=== PATIENT | female | born 1945 | race Caucasian/White ===

== ENCOUNTER → 2017-09-20 | Outpatient (CLI) | payer MEDICARE ==
[~2017-09-20] MED LIST: ACYC800T99 PO; ADV250/50 INH; ALB17R INH; DOC100 PO; OMEP10CA40 PO; ONDA4TAB PO; PAN40 PO; PER PO; PROM25SU61 RC; RANI150T PO; TRIF7.5D5 OP
== END ==
LOC: RESP 03:39
PROVIDERS: ATTEND Nurse Practitioner Psychiatric/Mental Health
DX: J44.9 Chronic obstructive pulmonary disease, unspecified (principal)
CPT/HCPCS: 94060; 94726; 94729

== ENCOUNTER → 2018-08-20 | Outpatient (REF) | payer MEDICARE ==
[2018-08-20 10:35] LABS: PLATELET COUNT, AUTOMATED 370 K/uL (150-450)
== END ==
LOC: ZZSTITCHES 10:22
PROVIDERS: ATTEND Physician Assistant
DX: R06.02 Shortness of breath (principal); R53.81 Other malaise; R51 Headache
CPT/HCPCS: 82040; 82247; 82310; 82374; 82435; 82565; 82947; 84075; 84132; 84155; 84295; 84443; 84450; 84460; 84520; 85025